=== PATIENT | male | born 1990 | race Caucasian/White ===

== ENCOUNTER 2018-11-25 20:58 | Emergency (ER) | payer OTHER ==
[~2018-11-25] VITALS: Ht 185.4 cm; Wt 94.3 kg
[2018-11-25] MEDS ORDERED: CLONAZEPAM2 M1 (22:06)
== END 2018-11-25 23:00 | disposition home or self-care (01) ==
LOC: ER 20:58
DX: K04.7 Periapical abscess without sinus (principal); K08.89 Other specified disorders of teeth and supporting structures